=== PATIENT | female | born 1960 | race African-American/Black ===

== ENCOUNTER 2017-02-14 08:32 | Observation (INO) ==
[2017-02-14] MEDS ORDERED: Metoclopramide 10 MG/2 ML VIAL IVP ONE (08:40)
[2017-02-14 08:46] LABS: Basophils # 0.1 K/mcL (0.0-0.2); Basophils % 1.3 %; Eosinophils # 0.2 K/mcL (0.0-0.6); Eosinophils % 2.3 %; Hematocrit 42.4 % (35.3-44.9); Hemoglobin 13.6 g/dL (11.5-15.4); Immature Granulocytes % 0.1 % (0-4); Lymphocytes # 1.6 K/mcL (0.6-4.6); Lymphocytes % 23.3 %; Mean Corpuscular HGB Conc 32.1 g/dL (31.6-35.5); Mean Corpuscular Hemoglobin 26.9 pg (28.0-33.3); Mean Platelet Volume 10.5 fL (9.4-12.4); Monocytes # 0.6 K/mcL (0.0-1.3); Monocytes % 8.7 %; Neutrophils # 4.4 K/mcL (1.6-8.9); Platelet Count 278 K/mcL (140-400); Red Blood Count 5.05 M/mcL (3.82-4.97); Red Cell Distribution Width 14.7 % (11.5-14.5); Segmented Neutrophils % 64.3 %
[2017-02-14 08:52] LABS: INR 1.1; Prothrombin Time 11.3 Seconds (9.4-12.1)
[2017-02-14 08:55] LABS: Activated Partial Thrombo Time 28.7 Seconds (26.0-36.0)
[2017-02-14 08:59] LABS: BUN/Creatinine Ratio 17 (6-26); Blood Urea Nitrogen 17 mg/dL (7-20); Carbon Dioxide 24 mEq/L (19-29); Chloride 104 mEq/L (98-109); Glucose 203 mg/dL (70-99); Osmolality,Calculated 289 (280-300); Sodium 136 mEq/L (136-145); eGFR For African Americans > 60 (> 60); eGFR For Non-African Americans 55 (> 60)
--- NOTE | 2017-02-14 09:22 | Emergency Department Note ---
Disposition Clinical Impression: Acute focal neurological deficit, onset within 3 hours Disposition: Admitted As Inpatient Condition: Good Referrals: Farooq Valle Jr, MD [Primary Care Provider] - Time of Disposition: 09:15 Dizziness HPI - General Chief Complaint: ED Dizziness Stated Complaint: Dizzy Time Seen by Provider: 02/14/17 08:40 Source: patient Mode of arrival: EMS Limitations: no limitations Nursing Notes Reviewed: Yes Vital Signs Reviewed: Yes - History of Present Illness HPI Narrative: 57-year-old female brought in to the emergency department by EMS for concerns of acute onset dizziness and nausea. Patient states she was on her way to work when she developed acute onset of symptoms at 8:00 AM. Patient states she feels dizzy and nauseated. Patient states that the symptoms are similar to her previous CVA which left left-sided visual deficit and left upper and lower extremity weakness. Patient denies recent medication changes. Patient denies chest pain or recent trauma. - Related Data Allergies Allergy/AdvReac Type Severity Reaction Status Date / Time No Known Allergies Allergy Verified 02/14/17 08:37 All systems ED: reviewed and negative except as stated. Constitutional: Denies: fever, chills, weakness, weight change Eyes: Denies: eye pain ENT ED: Denies: ear pain, throat pain Cardiovascular: Denies: chest pain, palpitations, dyspnea on exertion, orthopnea , syncope Respiratory: Denies: cough, dyspnea, wheezes, hemoptysis Gastrointestinal: Denies: abdominal pain, nausea, vomiting Genitourinary: Denies: urgency, dysuria, frequency, hematuria Past Medical History - Past Medical History Attestation: Yes The following information was validated with the patient. Source: patient Medical history: Reports: CVA, hypertension Psychiatric history: Reports: no psych history - Social History Smoking Status: Unknown if ever smoked Smokeless Tobacco Status: No Alcohol use: Reports: unknown Drug use: Reports: none Physical Exam General: Alert and in no acute distress Skin: Warm, dry, intact Eye: Bilateral nystagmus present on exam. Severe left-sided visual deficit which is chronic from previous stroke. Head: Normocephalic and atraumatic Neck: Supple, trachea midline and no tenderness Cardiovascular: RRR, no murmur, normal perfusion Respiratory: CTAB, no wheezing, cough, or respiratory distress Musculoskeletal: Normal strength, no tenderness, swelling or deformity GI: Soft, nontender, nondistended. Bowel sounds present Neuro: A&O to person, place, time and situation. Patient had deficit of poor finger to nose testing on the left. Strength equal and bilateral in upper and lower extremities. Psychiatric: cooperative and appropriate mood and affect. - General Limitations: no limitations General appearance: alert, in no apparent distress Course Vital Signs Temperature 97.6 F 02/14/17 08:35 Pulse Rate 66 02/14/17 08:35 Respiratory Rate 18 02/14/17 08:35 Blood Pressure 123/63 02/14/17 08:35 O2 Sat by Pulse Oximetry 98 02/14/17 08:35 Temperature 97.6 F 02/14/17 08:35 Pulse Rate 66 02/14/17 09:00 Respiratory Rate 18 02/14/17 09:00 Blood Pressure 118/64 02/14/17 09:00 O2 Sat by Pulse Oximetry 97 02/14/17 09:00 Oxygen Delivery Oxygen Delivery Room Air Dizziness - MDM Narrative Medical decision making narrative: CT of the head shows sequelae of previous CVA. Patient left sided difficulty with finger-nose testing improved by the time of neurology assessment from [facility]. O2 neurology recommended patient was not a candidate for TPA. Patient feels comfortable with the plan to be admitted the hospital for further care and evaluation. - Medical Records Medical records reviewed: Yes I reviewed the patient's medical records. - Lab Data Lab results reviewed: Yes I reviewed the patient's lab results. Result diagrams: 02/14/17 08:41 02/14/17 08:41 Lab Results 02/14/17 02/14/17 02/14/17 Range/Units 08:37 08:41 08:41 WBC 6.8 (4.3-11.1) K/mcL RBC 5.05 H (3.82-4.97) M/mcL Hgb 13.6 (11.5-15.4) g/dL Hct 42.4 (35.3-44.9) % MCV 84.0 (83.0-100.0) fL MCH 26.9 L (28.0-33.3) pg MCHC 32.1 (31.6-35.5) g/dL RDW 14.7 H (11.5-14.5) % Plt Count 278 (140-400) K/mcL MPV 10.5 (9.4-12.4) fL Immature Gran % 0.1 (0-4) % Seg Neutrophils % 64.3 % Lymphocytes % 23.3 % Monocytes % 8.7 % Eosinophils % 2.3 % Basophils % 1.3 % Neutrophils # 4.4 (1.6-8.9) K/mcL Lymphocytes # 1.6 (0.6-4.6) K/mcL Monocytes # 0.6 (0.0-1.3) K/mcL Eosinophils # 0.2 (0.0-0.6) K/mcL Basophils # 0.1 (0.0-0.2) K/mcL PT 11.3 (9.4-12.1) Seconds INR 1.1 APTT 28.7 (26.0-36.0) Seconds Sodium (136-145) mEq/L Potassium (3.5-4.5) mEq/L Chloride (98-109) mEq/L Carbon Dioxide (19-29) mEq/L BUN (7-20) mg/dL Creatinine (0.57-1.11) mg/dL Est GFR ( Amer) (> 60) Est GFR (Non-Af Amer) (> 60) BUN/Creatinine Ratio (6-26) Glucose (70-99) mg/dL POC Glucose 184 H (58-89) Calculated Osmolality (280-300) Calcium (8.6-10.8) mg/dL Troponin I (0-0.03) ng/mL 02/14/17 02/14/17 Range/Units 08:41 08:41 WBC (4.3-11.1) K/mcL RBC (3.82-4.97) M/mcL Hgb (11.5-15.4) g/dL Hct (35.3-44.9) % MCV (83.0-100.0) fL MCH (28.0-33.3) pg MCHC (31.6-35.5) g/dL RDW (11.5-14.5) % Plt Count (140-400) K/mcL MPV (9.4-12.4) fL Immature Gran % (0-4) % Seg Neutrophils % % Lymphocytes % % Monocytes % % Eosinophils % % Basophils % % Neutrophils # (1.6-8.9) K/mcL Lymphocytes # (0.6-4.6) K/mcL Monocytes # (0.0-1.3) K/mcL Eosinophils # (0.0-0.6) K/mcL Basophils # (0.0-0.2) K/mcL PT (9.4-12.1) Seconds INR APTT (26.0-36.0) Seconds Sodium 136 (136-145) mEq/L Potassium 4.0 (3.5-4.5) mEq/L Chloride 104 (98-109) mEq/L Carbon Dioxide 24 (19-29) mEq/L BUN 17 (7-20) mg/dL Creatinine 1.03 (0.57-1.11) mg/dL Est GFR ( Amer) > 60 (> 60) Est GFR (Non-Af Amer) 55 L (> 60) BUN/Creatinine Ratio 17 (6-26) Glucose 203 H (70-99) mg/dL POC Glucose (58-89) Calculated Osmolality 289 (280-300) Calcium 9.0 (8.6-10.8) mg/dL Troponin I 0.01 (0-0.03) ng/mL - Radiology Data Radiology results reviewed: Yes I reviewed the patient's radiology results.
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
[2017-02-14] MEDS ORDERED: Naloxone 0.4 MG/ML INJ IVP PRN (11:49)
[2017-02-14] MEDS ORDERED: Ondansetron ODT 4 MG TAB.RAPDIS SL PRN (11:50)
[2017-02-14] MEDS ORDERED: MOM Conc 10 ML UD.LIQ PO PRN (11:50)
[2017-02-14] MEDS ORDERED: Acetaminophen 325 MG TABLET PO PRN (11:50)
[2017-02-14] MEDS ORDERED: 0.9 % Sodium Chloride 1,000 ML IVC SCH (12:00)
[2017-02-14 13:03] LABS: Bilirubin,Urine Negative (Negative); Blood,Urine Negative (Negative); Clarity,Urine Clear (Clear); Color,Urine Yellow (Yellow); Glucose,Urine (UA) Normal (Normal); Ketones,Urine Negative (Negative); Leukocyte Esterase,Urine Negative (Negative); Nitrite,Urine Negative (Negative); PH,Urine 6.5 pH Units (5.0-8.0); Protein,Urine Negative (Neg-Trace); Specific Gravity,Urine 1.007 (1.010-1.025); Urobilinogen,Urine Normal (Normal)
[2017-02-14] MEDS ORDERED: CloNIDine Patch 0.3 MG PATCH (WEEKLY) TD SCH (15:45)
--- NOTE | 2017-02-14 17:46 | Electrocardiograph Report ---
[place] [id number] Test Date: 2017-02-14 Pat Name: Linda Ceballos Department: 103 Room: [facility] Gender: F Floor Sander: DEZ : 1960 Requested By: Darrell Ledesma Order Number: [id number] Reading MD: Radha Bailey Measurements Intervals [place] Rate: 68 P: 50 HI: 175 QRS: -4 QRSD: 101 T: 50 QT: 431 QTc: 449 Interpretive Statements SINUS RHYTHM NONSPECIFIC T-WAVE ABNORMALITY Electronically Signed On 02-14-2017 17:44:57 EDT by Radha Bailey
[2017-02-15 04:15] LABS: Eosinophils % 0.7 %; Hematocrit 42.7 % (35.3-44.9); Hemoglobin 13.9 g/dL (11.5-15.4); Immature Granulocytes % 0.2 % (0-4); Lymphocytes % 15.8 %; Mean Corpuscular HGB Conc 32.6 g/dL (31.6-35.5); Mean Corpuscular Hemoglobin 27.2 pg (28.0-33.3); Mean Corpuscular Volume 83.6 fL (83.0-100.0); Mean Platelet Volume 10.6 fL (9.4-12.4); Monocytes % 5.7 %; Platelet Count 263 K/mcL (140-400); Red Blood Count 5.11 M/mcL (3.82-4.97); Red Cell Distribution Width 14.7 % (11.5-14.5); Segmented Neutrophils % 76.7 %
[2017-02-15 04:16] LABS: Basophils # 0.1 K/mcL (0.0-0.2); Basophils % 0.9 %; Eosinophils # 0.1 K/mcL (0.0-0.6); Lymphocytes # 1.3 K/mcL (0.6-4.6); Monocytes # 0.5 K/mcL (0.0-1.3); Neutrophils # 6.3 K/mcL (1.6-8.9)
[2017-02-15 04:20] LABS: Hemoglobin A1C 6.5 %
[2017-02-15 04:27] LABS: BUN/Creatinine Ratio 14 (6-26); Blood Urea Nitrogen 13 mg/dL (7-20); Calcium 9.1 mg/dL (8.6-10.8); Carbon Dioxide 24 mEq/L (19-29); Chloride 103 mEq/L (98-109); Chol/HDL Ratio 2.9 (0-4.9); Cholesterol 140 mg/dL (< 200); Glucose 148 mg/dL (70-99); HDL Cholesterol 48 mg/dL (40-59); LDL Cholesterol,Calculated 81 mg/dL (0-99); Osmolality,Calculated 285 (280-300); Potassium 3.8 mEq/L (3.5-4.5); Sodium 136 mEq/L (136-145); Triglycerides 56 mg/dL (< 150); eGFR For African Americans > 60 (> 60); eGFR For Non-African Americans > 60 (> 60)
[2017-02-15] MEDS ORDERED: Aspirin Enteric Coated 81 MG Tablet PO SCH (09:00)
[2017-02-15] MEDS ORDERED: amLODIPine 5 MG TABLET PO SCH (09:00)
--- NOTE | 2017-02-15 09:05 | Vascular/Endovasc Consult Note ---
<Asia Burton Bipin - Last Filed: 02/15/17 13:43> Date of Encounter: 02/15/17 Time of Encounter: 09:05 Assessment and Plan (1) Carotid artery occlusion Current Visit: Yes Status: Acute Preliminary carotid US report indicates right internal carotid artery is included in the left ICA with 60 to 79% occlusion; Reviewed images with Dr. Albarran. Peak flow velocities 229/77 MRI results noted no acute infarctions and remote infarctions in the left cerebellum and the right posterior cerebral artery area, diminished flow to the right ICA head CT indicated no acute intracranial process, and remote infarcts right occipital and left cerebellum Echo indicates EF 60-65%, small pericardial effusion (no evidence of tamponade noted on exam), no PFO, and mild diastolic dysfunction She is asymptomatic at this time. Stated adherence to medication regimen as outpatient. Her exam is normal at this time. Plan: Recommend carotid arteriogram. Dr. Albarran will review with Dr. Burton Qualifiers: Laterality: right Qualified Code(s): I65.21 - Occlusion and stenosis of right carotid artery (2) History of CVA (cerebrovascular accident) Current Visit: Yes Status: Chronic See above (3) HTN (hypertension) Current Visit: Yes Status: Chronic Currently controlled; management per medicine Qualifiers: Hypertension type: essential hypertension Qualified Code(s): I10 - Essential (primary) hypertension (4) Diabetes mellitus Current Visit: Yes Status: Acute Management per medicine Qualifiers: Diabetes mellitus type: type 2 Diabetes mellitus complication status: without complication Diabetes mellitus intermediate accountant insulin use: without residential use Qualified Code(s): E11.9 - Type 2 diabetes mellitus without complications (5) DVT prophylaxis Current Visit: Yes Status: Acute Management per medicine - History of Present Illness Consult date: 02/15/17 (Dr. Rene Albarran) Requesting physician: Ruby Sosa Consult reason: h/o CVA; right carotid artery occlusion, left carotid artery stenosis Chief complaint: Sudden onset of dizziness and nausea History of present illness: Ms. Ceballos is a pleasant 57 year old female who has a past medical history of hypertension, TIA, CVA (2010), and type II diabetes mellitus (on insulin). She denies history of cigarette smoking, alcohol, drug use, or surgical history. She reports she has been adherent to her medication regimen including [employer], Plavix, antihypertensive, and antidiabetic. She reports she had some lost revision to the left I after her CVA in 2010 but denies any other deficits. Vascular has been asked to see the patient regarding carotid and MRI findings. She reports that she was "on her way to work," yesterday when she had an sudden onset of dizziness associated with nausea and one episode of vomiting. She states she was unable to ambulate and her coworkers then called EMS. She presented to the emergency department for complaints of nausea, vomiting, and dizziness. Her symptoms result shortly after arrival to the emergency department. Her hospital course thus far has included a head CT which indicated remote infarcts in the right occipital and left cerebellum and without acute intracranial process, MRI indicated no acute intracranial process in remote infarcts to the left cerebellar and right post cerebral artery area, and diminished flow in the right internal carotid artery. Her preliminary results of her bilateral carotid ultrasound indicates the right internal carotid artery is included in the left internal carotid artery is 60 to 79%. Ms. Ceballos is currently asymptomatic. She denies dizziness, headache, chest pain , shortness of breath, weakness, abdominal pain, changes in bowel habits, black bloody or tarry stool, urinary signs or symptoms, anxiety or depression. Past Med Surg Social Fam HX - Past Medical History Medical history: CVA, hypertension Psychiatric history: no psych history - Past Surgical History Surgical History: no surgical history - Social History Smoking Status: Never smoker Smokeless Tobacco Status: No Alcohol use: none Drug use: none Occupational status: employed Current living situation: Home - Independent Activity Level: Independent ambulation Recent Out of Country Travel Within the Last 8 Weeks: No Exposure or Possible Exposure to Illness During Travel: No Medications and Allergies Amlodipine Besylate 20 mg PO DAILY 02/14/17 [History] Aspirin [Lo-Dose Aspirin EC] 81 mg PO DAILY 02/14/17 [History] Atorvastatin [Lipitor] 40 mg PO HS 02/14/17 [History] Buspirone HCl [Buspar] 5 mg PO BID 02/14/17 [History] Citalopram [CeleXA] 20 mg PO DAILY 02/14/17 [History] CloNIDine Patch [Catapres-Tts] 0.3 mg TD QWEEK 02/14/17 [History] Clopidogrel [Plavix] 75 mg PO DAILY 02/14/17 [History] Labetalol HCl 300 mg PO BID 10/03/17 [History] 3 Allergy/AdvReac Type Severity Reaction Status Date / Time No Known Allergies Allergy Verified 02/14/17 08:37 All Systems Review: A 10-system review of systems was performed and is negative for pertinent findings except as documented above in the HPI. Review of Systems: See HPI Exam Vital Signs, Last 4 Hours Temp Pulse Resp BP Pulse Ox 02/15/17 06:35 98.3 F 94 10 130/79 97 Exam: VITAL SIGNS: Reviewed. GENERAL: In no apparent distress. HEAD: No signs of head trauma. EYES: Pupils are equal. Extraocular motions intact. EARS: Hearing grossly intact. MOUTH: Oropharynx is normal. NECK: No adenopathy, no JVD. CHEST: Chest with clear breath sounds bilaterally. No wheezes, rales, or rhonchi. CARDIAC: Regular rate and rhythm. S1 and S2, without murmurs, gallops, or rubs. VASCULAR: peripheral and central pulses are regular and 2+. There are no bruits appreciated with auscultation ABDOMEN: Soft, without detectable tenderness. No sign of distention. No rebound or guarding, and no masses palpated. Bowel Sounds normal. MUSCULOSKELETAL: Good range of motion of all major joints. Extremities without clubbing, cyanosis or edema. NEUROLOGIC EXAM: Alert and oriented x 3. No focal sensory or strength deficits. Speech normal. Follows commands. PSYCHIATRIC: Mood normal. SKIN: No rash or lesions. Other: Brain MRI 02/14/17 00:00 IMPRESSION: 1. No acute intracranial abnormality. 2. Remote infarcts in the left cerebellar hemisphere and right posterior cerebral artery territory. 3. Diminished flow void in the visualized right internal carotid artery suggesting high-grade proximal stenosis or occlusion. 4. Findings of right maxillary sinusitis. D/ / Darrion Rosario MD / Darrion Rosario MD Interpreting Provider: Darrion Rosario MD Echocardiogram 02/14/17 00:00 Impressions: LVEF 60-65%. Normal LV chamber size and function. Mild concentric left ventricular hypertrophy. Mild left ventricular diastolic dysfunction. Normal right ventricular structure and function. No evidence of PFO with agitated saline contrast. No evidence of pulmonary hypertension. There is a small inferolateral pericardial effusion present. There is no echocardiographic evidence of tamponade. Left Ventricular Wall Motion: Rest Echo Findings All wall segments showed normal motion. Findings: Study Quality * Technically adequate exam. ECG Findings * Normal sinus rhythm. Left Ventricle * LVEF 60-65%. * Normal LV chamber size and function. * Mild concentric left ventricular hypertrophy. * Mild left ventricular diastolic dysfunction. Right Ventricle * Normal right ventricular structure and function. Left Atrium * Normal left atrial size. Right Atrium * Normal right atrial size. Interatrial Septum * No evidence of PFO with agitated saline contrast. Aortic Valve * Aortic valve not well visualized. * Grossly appearing trileaflet aortic valve. * No aortic regurgitation. * No aortic stenosis. Mitral Valve * Normal mitral valve structure and function. * No mitral regurgitation. * No mitral stenosis. Tricuspid Valve * Normal tricuspid valve structure and function. * Trace tricuspid regurgitation. * No evidence of pulmonary hypertension. Pulmonic Valve * Normal pulmonic valve structure and function. * No pulmonic regurgitation. Aorta * Normally sized aortic root. Pericardium * There is a small inferolateral pericardial effusion present. * There is no echocardiographic evidence of tamponade. Pulmonary Artery * Normal visualized portions of the main pulmonary artery. Head CT 02/14/17 08:38 IMPRESSION: No acute intracranial abnormality. Sequelae of remote infarcts identified in the right occipital lobe and left cerebellum. Findings were discussed with Dr. Encinas on 02/14/2017 at 9:06 a.m. D/ / 02/14/2017 09:08:07 [facility] Interpreting Provider: Lily Najera MD Consult Discharge Plan - Plan Referrals: Rene Albarran MD [Partnered Physician] - (Follow up in 1-2 weeks for carotid disease) Farooq Valle Jr, MD [Primary Care Provider] - 02/23/17 10:00 am <Rene Albarran - Last Filed: 02/15/17 18:04> Date of Encounter: 02/15/17 - History of Present Illness History of present illness: Ms. Ceballos is a 57 year old female All Systems Review: A 10-system review of systems was performed and is negative for pertinent findings except as documented above in the HPI. Exam Vital Signs, Last 4 Hours Temp Pulse Resp BP Pulse Ox 02/15/17 15:49 98.2 F 74 12 163/96 96 - Attending Attestation I have personally performed a face to face evaluation on this patient. I have reviewed and agree with the care plan. History and Exam by me shows: The patient was seen and evaluated. I reviewed all of her testing as well as her symptoms. She does not appear to have had a focal motor neurologic deficit. She is on very high doses of antihypertensives including beta blockers which may lead to dizziness or lightheadedness. This certainly is a reasonable explanation for her symptoms. However, she has a right internal carotid artery occlusion that likely happened in 2010 with residual left facial neurologic deficit. Her left arm and left leg are not affected. Carotid duplex demonstrates a 60-79% stenosis with peak systolic flow velocities of 220/ 75 centimeters per second. I personally are reviewed the duplex and there is a heavy plaque in this area. I am concerned that if this plaque reaches 80%, or a critical level, that she would fall into the category of bilateral critical stenosis with global symptoms secondary to transient hypoperfusion. For this reason I would recommend a CTA of the neck and I will follow her as an outpatient. She may require repair of the left internal carotid artery if she falls into a symptomatic global hypoperfusion range. She is neurologically intact at time of examination and evaluation I think it is reasonable to proceed as an outpatient. Rene Albarran MD FACS
--- NOTE | 2017-02-15 09:12 | Internal Med Progress Note ---
<Ruby Sosa - Last Filed: 02/15/17 09:36> Date of Encounter: 02/15/17 Time of Encounter: 09:10 - Assessment and plan (1) TIA (transient ischemic attack) Current Visit: Yes Status: Acute Assessment and plan: TIA vs vertigo vs other. Symptoms were similar to previous CVA carotid doppler preliminary report: right ICA appears occluded, left ICA appears 60-79% occluded. CT and MRI negative for new stroke echo report pending vascular surgery consulted, appreciate recommendations Qualifiers: Transient cerebral ischemia type: unspecified Qualified Code(s): G45.9 - Transient cerebral ischemic attack, unspecified (2) Diabetes mellitus Current Visit: Yes Status: Acute Assessment and plan: new diagnosis, Hg A1c 6.5 accuchecks achs, low dose sliding scale Qualifiers: Diabetes mellitus type: type 2 Diabetes mellitus complication status: without complication Diabetes mellitus usp insulin use: without usp use Qualified Code(s): E11.9 - Type 2 diabetes mellitus without complications (3) Dizziness Current Visit: Yes Status: Acute (4) Nausea & vomiting Current Visit: Yes Status: Acute Assessment and plan: Zofran ODT 4 mg PRN Qualifiers: Vomiting type: unspecified Vomiting Intractability: non-intractable Qualified Code(s): R11.2 - Nausea with vomiting, unspecified (5) History of CVA (cerebrovascular accident) Current Visit: Yes Status: Chronic Assessment and plan: CVA in 2010. Deficit left vision loss. Head CT shows sequelae of remote infarcts in right occipital lobe and left cerebellum. Continue ASA and Plavix. (6) HTN (hypertension) Current Visit: Yes Status: Chronic Assessment and plan: stable, continue home medications Qualifiers: Hypertension type: essential hypertension Qualified Code(s): I10 - Essential (primary) hypertension (7) DVT prophylaxis Current Visit: Yes Status: Acute Assessment and plan: LEO cecile - Subjective Interval history: Patient without complaints; she has been symptom free since hospital admission. "I am back to my normal self." - Constitutional Vitals: Temp Pulse Resp BP Pulse Ox 98.3 F 94 10 130/79 97 02/15/17 06:35 02/15/17 06:35 02/15/17 06:35 02/15/17 06:35 02/15/17 06:35 General appearance: Present: cooperative, A&O X 3, pleasant, no acute distress, answers questions appropriately - Head Head exam: Present: atraumatic, normocephalic - Eye Eye exam: Present: PERRL, conjuntiva pink, sclera anicteric Pupils: Present: PERRL - Neck Neck exam general surgery: Present: supple, trachea midline - Respiratory Respiratory exam: Present: CTAB. Absent: accessory muscle use, rales, rhonchi, wheezes - Cardiovascular Cardiovascular exam: Present: RRR, +S1, +S2. Absent: diastolic murmur, gallop, rubs, systolic murmur - GI/Abdominal GI/Abdominal exam: Present: normal bowel sounds, soft, no peritoneal signs. Absent: distended, tenderness - Extremities Exam Extremities exam: Present: normal capillary refill, normal inspection, warm. Absent: pedal edema, tenderness - Neurological Exam Neurological exam: Present: alert, CN II-XII intact, oriented X3. Absent: facial droop, speech deficit - Skin Skin exam: Present: dry, intact, warm Internal Medicine: Result - Labs CBC & Chem 7: 02/15/17 03:45 02/15/17 03:45 Labs: Short CBC 02/15/17 Range/Units 03:45 WBC 8.2 (4.3-11.1) K/mcL Hgb 13.9 (11.5-15.4) g/dL Hct 42.7 (35.3-44.9) % Plt Count 263 (140-400) K/mcL Neutrophils # 6.3 (1.6-8.9) K/mcL BMP 02/15/17 03:45 Sodium 136 Potassium 3.8 Chloride 103 Carbon Dioxide 24 BUN 13 Creatinine 0.93 Glucose 148 H Calcium 9.1 Urine 02/14/17 Range/Units 12:52 Urine Color Yellow (Yellow) Urine Clarity Clear (Clear) Urine pH 6.5 (5.0-8.0) pH Units Ur Specific [place] 1.007 L (1.010-1.025) Urine Protein Negative (Neg-Trace) mg/dL Urine Glucose (UA) Normal (Normal) mg/dL - ABG Interpretation ABG results: PT/INR, D-dimer PT 11.3 Seconds (9.4-12.1) 02/14/17 08:41 Consult Discharge Plan - Plan Referrals: Rene Albarran MD [Partnered Physician] - (Follow up in 1-2 weeks for carotid disease) Farooq Valle Jr, MD [Primary Care Provider] - 02/23/17 10:00 am <Darrell Ledesma - Last Filed: 02/15/17 17:50> Date of Encounter: 02/15/17 - Assessment and plan (1) TIA (transient ischemic attack) Current Visit: Yes Status: Acute Qualifiers: Transient cerebral ischemia type: other Qualified Code(s): G45.8 - Other transient cerebral ischemic attacks and related syndromes (2) HTN (hypertension) Current Visit: Yes Status: Chronic Qualifiers: Hypertension type: essential hypertension Qualified Code(s): I10 - Essential (primary) hypertension (3) Diabetes mellitus Current Visit: Yes Status: Acute Qualifiers: Diabetes mellitus type: type 2 Diabetes mellitus complication status: without complication Diabetes mellitus usp insulin use: without usp use Qualified Code(s): E11.9 - Type 2 diabetes mellitus without complications (4) Carotid artery occlusion Current Visit: Yes Status: Chronic Qualifiers: Laterality: bilateral Qualified Code(s): I65.23 - Occlusion and stenosis of bilateral carotid arteries (5) History of CVA (cerebrovascular accident) Current Visit: Yes Status: Chronic (6) Morbid obesity with BMI of 40.0-44.9, adult Current Visit: Yes Status: Chronic - Constitutional Vitals: Temp Pulse Resp BP Pulse Ox 98.2 F 74 12 163/96 96 02/15/17 15:49 02/15/17 15:49 02/15/17 15:49 02/15/17 15:49 02/15/17 15:49 Internal Medicine: Result - Labs CBC & Chem 7: 02/15/17 03:45 02/15/17 03:45 Labs: Short CBC 02/15/17 Range/Units 03:45 WBC 8.2 (4.3-11.1) K/mcL Hgb 13.9 (11.5-15.4) g/dL Hct 42.7 (35.3-44.9) % Plt Count 263 (140-400) K/mcL Neutrophils # 6.3 (1.6-8.9) K/mcL BMP 02/15/17 03:45 Sodium 136 Potassium 3.8 Chloride 103 Carbon Dioxide 24 BUN 13 Creatinine 0.93 Glucose 148 H Calcium 9.1 - ABG Interpretation ABG results: PT/INR, D-dimer PT 11.3 Seconds (9.4-12.1) 02/14/17 08:41 - Attending Attestation I examined this patient and my medical decision-making was reviewed with the Resident Physician on 02/15/17. I agree with the documented findings, disposition and treatment plan as described except to the extent set forth below. Please see discharge summary of this date.
[2017-02-15] MEDS ORDERED: *HR* Dextrose 50 % in Water (Syg) 50 ML SYRINGE IVP PRN (09:32)
[2017-02-15] MEDS ORDERED: D5% in Water 1,000 ML IVC PRN (09:32)
[2017-02-15] MEDS ORDERED: Dextrose Gel 15 GM PO PRN ×2 (09:32)
[2017-02-15] MEDS: Insulin LISPRO 300 UNITS/3 ML VIAL SQ SCH ×2 (13:55→17:25)
--- NOTE | 2017-02-15 13:55 | Carotid Imaging Report ---
Carotid Duplex Patient Name:Linda Ceballos Order Number:[id number] Procedure Date:02/14/2017 Date:1960ge:57 yrs Gender:Female Lt BP:144 / 75 mmHg Rt.BP:132 / 79 mmHgHeart Rate: Location:[facility] Room #: 2NE35 Web Retailer:Anastasia Sage RDCS Referring MD:Janina Medel CNP Reading MD:Bill Walsh MD Primary Indications:tia symptoms, dizziness, weakness Risk Factors Yes/No Hx of CVA Yes Hypertension Yes Hypercholesterolemia Yes Impressions: The right internal carotid artery is occluded. The left internal carotid artery has a 60-79% stenosis. Recommendations: Risk factor reduction. Further evaluation recommended if clinically indicated. Follow-up carotid duplex in 6 months. After imaging the patient returned to their room. Gave vascular preliminary resultd to Elizabeth WILSON on 02/14/2017 at 21:01. Elizabeth stated she would make Hospitalist aware. Test completed on 02/14/2017 at 7:48:00 pm. Critical findings reported to STEVE Johnson [id number] nurse by phone at 9:01:00 pm on 02/14/2017 by Anastasia Sage RDCS. Findings Carotid Duplex: Right: The right proximal common carotid artery has a PSV of 64 cm/s and a EDV of 8 cm/s. The right mid common carotid artery has a PSV of 72 cm/s and a EDV of 11 cm/s. The right distal common carotid artery has a PSV of 68 cm/s and a EDV of 11 cm/s. The right bifurcation has a PSV of 60 cm/s and a EDV of 8 cm/s. The right proximal internal carotid artery is occluded. The right mid internal carotid artery is occluded. The right distal internal carotid artery is occluded. The right eca has a PSV of 126 cm/s and a EDV of 13 cm/s. The right vertebral artery has a PSV of 74 cm/s and a EDV of 18 cm/s. Left: The left proximal common carotid artery has a PSV of 92 cm/s and a EDV of 23 cm/s. The left mid common carotid artery has a PSV of 109 cm/s and a EDV of 28 cm/s. The left distal common carotid artery has a PSV of 101 cm/s and a EDV of 28 cm/s. There is nonstenotic plaque in the left bifurcation with a PSV of 116 cm/s and a EDV of 26 cm/s. There is 60-79% stenosis in the left proximal internal carotid artery with a PSV of 229 cm/s and a EDV of 77 cm/s. There is 60-79% stenosis in the left mid internal carotid artery with a PSV of 209 cm/s and a EDV of 67 cm/s. There is 60-79% stenosis in the left distal internal carotid artery with a PSV of 162 cm/s and a EDV of 49 cm/s. The left eca has a PSV of 191 cm/s and a EDV of 21 cm/s. The left vertebral artery has a PSV of 67 cm/s and a EDV of 16 cm/s. Prior Study: No prior study available for comparison. Carotid Results Right PSV EDV Assessment Proximal CCA 64 8 Normal Mid CCA 72 11 Normal Distal CCA 68 11 Normal Bifurcation 60 8 Normal Proximal ICA 0 0 occluded Mid ICA 0 0 occluded Distal ICA 0 0 occluded ECA 126 13 Normal Vertebral Artery 74 18 Normal Left PSV EDV Assessment Proximal CCA 92 23 Normal Mid CCA 109 28 Normal Distal CCA 101 28 Normal Bifurcation 116 26 Non Stenotic Plaque Proximal ICA 229 77 60-79% stenosis Mid ICA 209 67 60-79% stenosis Distal ICA 162 49 60-79% stenosis ECA 191 21 Normal Vertebral Artery 67 16 Normal Ratio's Right ICA/CCA Ratio: 0.00 ICA/CCA Values: 0/72 Left ICA/CCA Ratio: 2.10 ICA/CCA Values: 229/109 Updated by Bill Walsh MD on 02/15/2017 1:49:27 PM electronically signed on 02/15/2017 1:49:48 PM with status of Final
[2017-02-15 15:51] VITALS: BP 163/96
--- NOTE | 2017-02-15 17:39 | Discharge Summary ---
Date of Encounter: 02/15/17 Time of Encounter: 17:35 - Discharge Diagnosis (1) TIA (transient ischemic attack) Priority: Primary Status: Acute Qualifiers: Transient cerebral ischemia type: other Qualified Code(s): G45.8 - Other transient cerebral ischemic attacks and related syndromes (2) HTN (hypertension) Priority: Secondary Status: Chronic Qualifiers: Hypertension type: essential hypertension Qualified Code(s): I10 - Essential (primary) hypertension (3) Diabetes mellitus Priority: Secondary Status: Acute Qualifiers: Diabetes mellitus type: type 2 Diabetes mellitus complication status: without complication Diabetes mellitus roasterman insulin use: without roasterman use Qualified Code(s): E11.9 - Type 2 diabetes mellitus without complications (4) Carotid artery occlusion Priority: Secondary Status: Chronic Qualifiers: Laterality: bilateral Qualified Code(s): I65.23 - Occlusion and stenosis of bilateral carotid arteries (5) History of CVA (cerebrovascular accident) Priority: Secondary Status: Chronic (6) Morbid obesity with BMI of 40.0-44.9, adult Priority: Secondary Status: Chronic - Discharge Medications Home Medications: Amlodipine Besylate 20 mg PO DAILY 02/14/17 [History] Aspirin [Lo-Dose Aspirin EC] 81 mg PO DAILY 02/14/17 [History] Atorvastatin [Lipitor] 40 mg PO HS 02/14/17 [History] Buspirone HCl [Buspar] 5 mg PO BID 02/14/17 [History] Citalopram [CeleXA] 20 mg PO DAILY 02/14/17 [History] CloNIDine Patch [Catapres-Tts] 0.3 mg TD QWEEK 02/14/17 [History] Clopidogrel [Plavix] 75 mg PO DAILY 02/14/17 [History] Labetalol HCl 300 mg PO BID 02/14/17 [History] Allergies/Adverse Reactions: 3 Allergy/AdvReac Type Severity Reaction Status Date / Time No Known Allergies Allergy Verified 02/14/17 08:37 Procedures/tests Complete & Pending: Procedures Performed prior 72 hours Category Date Time Status MR head/brain wo con [MR] Routine MRI 02/14/17 Completed EV carotid duplex imaging BI Routine Y 02/14/17 Completed EV echocardiogram Routine Y 02/14/17 Completed Date of admission: 02/14/17 11:49 Primary care physician: Farooq Valle Jr, MD Consults: 02/15/17 08:10 Consult to Vascular Surgery [CONS] Routine Consulting Provider: Rene Albarran Reason for Consult: right carotid artery occlusion, left carotid artery stenosis Time Notified: 08:10 Call Completed: Yes Discharging clinician: Darrell Ledesma Anticipated date of discharge: 02/15/17 - Patient Status Disposition: Home, Self-Care Condition: Good Functional capacity at discharge: independent ambulation Overall status at discharge: patient is progressing back to baseline - Ambulatory Orders Ambulatory Orders: CT angio neck [CT] Time Frame: 1 Week, Facility: [facility], Location: Radiology - Discharge Instructions Follow Up With: Farooq Valle Jr, MD [Primary Care Provider] - 02/23/17 10:00 am Rene Albarran MD [Partnered Physician] - (Follow up in 1-2 weeks for carotid disease) - Diet and Activity Activity: increase activity as tolerated Diet: diabetic diet, low salt diet Hospital course: Ms. Ceballos is a 57 year old female with history of CVA presented to ED with episode of severe dizziness associated with nausea and vomiting. She was evaluated and placed in observation for further evaluation. Ms Ceballos was placed in observation on med tele. She had complete resolution of her symptoms. BP was monitored and meds continued. She had not further symptoms and had MRI which showed no new acute stroke. Carotid US showed 100% occlusion of R IC and 60-79% occlusion of L IC. Echo had no acute findings. She remained asymptomatic. She was evaluated by vascular surgery and will have a CTA as outpatient and further follow up for probable surgery. She is afebrile with stable vitals and ready for discharge home. - Time Spent with Patient Total time spent providing and/or coordinating discharge services: - Constitutional Vitals: Temp Pulse Resp BP Pulse Ox 98.2 F 74 12 163/96 96 02/15/17 15:49 02/15/17 15:49 02/15/17 15:49 02/15/17 15:49 02/15/17 15:49 General appearance: Present: cooperative, A&O X 3, pleasant, answers questions appropriately - Head Head exam: Present: normocephalic - Eye Eye exam: Present: conjuntiva pink - ENT ENT exam: Present: mucous membranes moist - Respiratory Respiratory exam: Present: CTAB. Absent: rales, rhonchi, wheezes - Cardiovascular Cardiovascular exam: Present: RRR. Absent: tachycardia - GI/Abdominal GI/Abdominal exam: Present: soft. Absent: tenderness - Extremities Exam Extremities exam: Present: warm. Absent: tenderness - Neurological Exam Neurological exam: Present: alert, oriented X3 - Skin Skin exam: Present: warm. Absent: rash
[2017-02-15] MEDS ORDERED: Insulin LISPRO 300 UNITS/3 ML VIAL SQ SCH (21:00)
== END 2017-02-15 18:57 | disposition home or self-care (01) ==
LOC: 2NENU 08:32 → EMEROO 08:32 → 2NENU 09:27 → SUATTDRO 11:49
PROVIDERS: ADMIT Registered Nurse; ATTEND Internal Medicine